=== PATIENT | female | born 1975 | race Caucasian/White ===

== ENCOUNTER → 2017-09-01 | Outpatient (CLI) | payer OTHER ==
[~2017-09-01] MED LIST: ABL/5 PO; ALPR-411 PO; AMT50 PO; BUPR200T2 PO; CHOL1TAB42 PO; FLUD0.1T10 PO; GADAVIST IV PRN; GLUCTAB7 PO; IBUP-103 PO; MULT-506 PO; OXYC20TA50 PO; OXYC7.5T65 PO; TRAZ50TA35 PO; VNTHFA/IN INH
--- NOTE | 2017-09-01 11:49 | DIAGNOSTIC IMAGING REPORT ---
FLUOROSCOPICALLY GUIDED LEFT SHOULDER PRE-MRI ARTHROGRAM CLINICAL HISTORY: LEFT LABRAL TEAR left shoulder pain COMPARISON STUDY: No previous studies for comparison. FINDINGS: A timeout was performed. The risks of the patient were explained the patient informed consent was obtained. The patient was prepped and draped in sterile fashion. 15 seconds of fluoroscopic time was utilized. A single fluoroscopic spot image was obtained. Under fluoroscopic guidance, a 22-gauge spinal needle was introduced the joint capsule. A mixture of Optiray 300 and gadolinium was instilled. A fluoroscopic spot image documents intra-articular location of the contrast. The patient was sent to the MRI suite for further imaging IMPRESSION: Successful fluoroscopically guided left shoulder arthrogram pre-MRI Electronically signed by: Isaiah Perez M.D. 09/01/2017 11:48 AM Dictated Date/Time: 09/01/2017 11:47 AM
--- NOTE | 2017-09-01 14:00 | DIAGNOSTIC IMAGING REPORT ---
L UPPER EXT JOINT WITH CLINICAL HISTORY: 41 years-old Female presenting with LEFT LABRAL TEAR. TECHNIQUE: Multisequence, multiplanar MR imaging of the left shoulder was performed after the administration of intra-articular contrast. IV contrast: None. COMPARISON: MR from 07/30/2016. FINDINGS: Localizer images: Unremarkable. No bone marrow edema. Articular cartilage preserved. Irregularity of the superior labrum at the biceps labral complex and extending posterior from 12:00 to 10:00. No associated articular cartilage disruption. Increased signal intensity of the supraspinatus tendon without focal tear. Partial undersurface tear of the anterior fibers of the infraspinatus. Teres minor tendon intact. Subscapularis tendon and transverse ligament of the subscapularis tendon intact. Long head of the biceps well seated in the intertubercular groove. Short head of the biceps tendon intact. Long head of the triceps tendon intact. Normal muscle bulk and muscle signal intensity. The joint is distended with intra-articular contrast. No evidence of periosteal stripping of the joint capsule at the scapula. IMPRESSION: 1. Interval development of a superior labral anterior to posterior tear from the biceps labral complex to the posterior labrum from 12:00 to 10:00. Alternatively, this may represent postsurgical change. Articular cartilage preserved. 2. Partial undersurface tear of the anterior fibers of the infraspinatus. 3. Tendinosis of the supraspinatus. Electronically signed by: Adolfo Dominguez M.D. 09/01/2017 1:59 PM Dictated Date/Time: 09/01/2017 1:34 PM
== END | disposition home or self-care (01) ==
LOC: C.MRIBC 10:59
PROVIDERS: ATTEND Orthopaedic Surgery
DX: S43.402A Unspecified sprain of left shoulder joint, initial encounter (principal); X58.XXXA Exposure to other specified factors, initial encounter

== ENCOUNTER → 2017-10-01 | Day surgery (SDC) | payer OTHER ==
[2017-09-11 14:55] VITALS: Ht 172.7 cm; Wt 63.6 kg
--- NOTE | 2017-09-15 14:55 | DIAGNOSTIC IMAGING REPORT ---
TWO VIEW CHEST CLINICAL HISTORY: Preoperative examination. FINDINGS: PA and lateral chest radiographs are obtained. No prior studies are available for comparison at the time of dictation. The cardiomediastinal silhouette is unremarkable. The lungs appear hyperinflated, likely due to good inspiratory result. The lungs and pleural spaces are clear. There is no pneumothorax. The bony thorax appears intact. Cholecystectomy clips are identified in the right upper quadrant. IMPRESSION: No active disease in the chest. Electronically signed by: Pedro Pearson M.D. 09/15/2017 2:54 PM Dictated Date/Time: 09/15/2017 2:53 PM
[2017-09-15 15:45] LABS: BASO % 0.4 %; BASO ABS # 0.02 K/uL (0-0.2); EOS % 6.7 %; HEMATOCRIT 35.6 % (37-47); HEMOGLOBIN 11.9 g/dL (12.0-16.0); LYMPH % 45.9 %; LYMPH ABS # 2.06 K/uL (1.2-3.4); MEAN CORPUSCULAR HEMOGLOBIN 30.4 pg (25-34); MEAN CORPUSCULAR HGB CONC 33.4 g/dl (32-36); MEAN PLATELET VOLUME 10.2 fL (7.4-10.4); MONO % 9.8 %; MONO ABS # 0.44 K/uL (0.11-0.59); NEUT % 37.2 %; NEUT ABS # 1.67 K/uL (1.4-6.5); PLATELET COUNT 208 K/uL (130-400); RED CELL DISTRIBUTION WIDTH CV 12.3 % (11.5-14.5); RED CELL DISTRIBUTION WIDTH SD 41.4 fL (36.4-46.3); WHITE BLOOD COUNT 4.49 K/uL (4.8-10.8)
[2017-09-15 16:23] LABS: CALCIUM 8.6 mg/dl (8.5-10.1); CREATININE 0.79 mg/dl (0.60-1.20); POTASSIUM 3.2 mmol/L (3.5-5.1)
[~2017-10-01] VITALS: Ht 172.7 cm; Wt 63.6 kg
[~2017-10-01] MED LIST changes: +ATROPINE SULFATE 0.1 MG/ML 5ML SYR IV PRN; +BUPIVACAINE 0.25% 30 ML VIAL ONE; +CEFAZOLIN 1000MG IV PUSH 7.5 ML IV SCH; +DEXAMETHASONE SOD INJ 4 MG/ML VIAL ONE; +EpHEDrine SULFATE INJ 50 MG/ML AMP IV PRN; +EpINEphrine INJ 1MG/ML AMP 1 MG/ML AMP ONE; +FENTANYL CITRATE INJ 50 MCG/1 ML 2 ML VIAL IV PRN; +FENTANYL CITRATE INJ 50 MCG/1 ML 2 ML VIAL ONE; -GADAVIST IV PRN; +KETOROLAC TROMETHAMINE 30 MG/ML VIAL IV. PRN; +KETOROLAC TROMETHAMINE 30 MG/ML VIAL ONE; +LACTATED RINGER'S 1000ML 1,000 ML IV SCH; +LIDOCAINE HCL 2% 2 ML VIAL (20MG/ML) ONE; +MIDAZOLAM HCL 1 MG/ML 2ML VIAL ONE; +ONDANSETRON INJ 2 MG/ML 2 ML VIAL IV PRN; +ONDANSETRON INJ 2 MG/ML 2 ML VIAL ONE; +OXYCODONE/ACETAMINOPHEN 5-325 TAB ONE; +OXYCODONE/ACETAMINOPHEN 5-325 TAB PO PRN; +PROPOFOL IV EMULSION 10 MG/ML 20 ML VIAL IV ONE; +ROPIVACAINE 0.5% 5 MG/ML 30 ML VIAL ONE; +SODIUM CHLORIDE 0.9% 1000ML 1,000 ML IV SCH
--- NOTE | 2017-10-01 06:57 | History & Physical Bridge Note ---
H&P Re-Evaluation Bridge Note: I have examined the patient, reviewed the History & Physical and in the interval since the performance of the History & Physical I have noted the following changes of clinical significance: No changes noted
--- NOTE | 2017-10-01 08:51 | [facility] Post Operative Brief Note ---
Immediate Operative Summary Operative Date Oct 01, 2017. Pre-Operative Diagnosis Left shoulder biceps tendonitis Post-Operative Diagnosis Same as preop Procedure(s) Performed Left Shoulder Arthroscopy With Biceps Tenodesis Surgeon Dr. Garcia Supervisor Wet Room Surgeon(s) Baljeet Waldrop PA-C Estimated Blood Loss 5 mL Findings Consistent with Post-Op Diagnosis Specimens None Drains None Anesthesia Type General Regional Complication(s) none Disposition Disposition: Recovery Room / PACU
--- NOTE | 2017-10-01 08:59 | Discharge Instructions-SurgCtr ---
Discharge Instructions Date of Service Oct 01, 2017. Visit Reason for Visit: Left Shoulder Superior Glenoid Labrum Jt Injury Discharge Discharge Diagnosis / Problem: SAME ABOVE Discharge Goals Goal(s): Decrease discomfort, Improve function Medications Stopped Medications Name(s): IBUPROFIN LAST DOSE 09-27-17 Restart Stopped Medication(s): NOVEMBER RESTART 10/01/2017 Activity Recommendations Activity Limitations: as noted below Lifting Limitations: until after follow-up appointment Exercise/Sports Limitations: until after follow-up appointment Shower/Bathe: tomorrow Anesthesia . Post Anesthesia Instructions: If you have had General Anesthesia or IV Sedation: * Do not drive today. * Resume driving when surgeon permits. * Do not make important decisions or sign legal documents today. * Call surgeon for: 1. Temperature elevations greater than 101 degrees F. 2. Uncontrollable pain. 3. Excessive bleeding. 4. Persistent nausea and vomiting. 5. Medication intolerance (nausea, vomiting or rash). * For nausea and vomiting use only clear liquids such as: tea, soda, bouillon until nausea subsides, then gradually increase diet as tolerated. * If you have any concerns or questions, call your surgeon's office. If physician is unavailable and it is an emergency, call 911 or go to the nearest emergency room. . Instructions / Follow-Up Instructions / Follow-Up MEDICATIONS: * Resume previous medications unless instructed otherwise by your surgeon. * Always take pain medication on a full stomach or with food to avoid upset stomach. * Do not drink alcohol or drive while taking narcotics. * Ibuprofen or Tylenol may be taken if narcotic not needed. SPECIAL CARE INSTRUCTIONS: __ None _X_ Keep extremity elevated and iced x 48 hours; apply ice 20-30 minutes 8-10 times/day. May remove at night. _X_ Sling (WEAR NEEDED FOR COMFORT) __24 hrs/day __ Remove at night __ Shoulder Immobilizer __ 24 hrs/day __ Remove at night _X_ Dressing __ Maintain until seen in office, may shower with plastic over site _X_ Remove dressings in 24-48 hours and then may shower _X_ Cover incisions with band-aids after showering _X_ Do not remove steri-strips Call physician if chills or temperature rises above 102 degrees or pain unrelieved by prescribed pain medications at . . Diet Recommendations Home Diet: no limitations Fluid Restriction: None Procedures Procedures Performed: Left Shoulder Arthroscopy With Biceps Tenodesis Pending Studies Studies pending at discharge: no Work Instructions Return To Work: after follow-up Lifting Limitations: NO LIFTING MORE THAN 5 POUNDS WITH LEFT ARM Medical Emergencies . Who to Call and When: Medical Emergencies: If at any time you feel your situation is an emergency, please call 911 immediately. . Non-Emergent Contact Non-Emergency issues call your: Primary Care Provider Call Non-Emergent contact if: you have a fever, temperature is above 101.5 . . "Provider Documentation" section prepared by Baljeet Waldrop. .
[2017-10-01 09:38] VITALS: TEMP 36.8
--- NOTE | 2017-10-01 09:48 | OPERATIVE REPORT ---
DATE OF OPERATION: 10/01/2017 PREOPERATIVE DIAGNOSES: Biceps tendinopathy and postoperative scarring of the left shoulder. POSTOPERATIVE DIAGNOSES: Biceps tendinopathy, postoperative scarring and external impingement of the left shoulder. PROCEDURE: Left shoulder diagnostic arthroscopy with extensive debridement, acromioplasty and open biceps tenodesis. SURGEON: Celio Garcia DO. COOLER WORKER: Baljeet Waldrop PA-C, whose assistance was necessary for helping in positioning, retraction, and closure. ANESTHESIA: General with a left interscalene nerve block. COMPLICATIONS: None. CONDITION: Stable to PACU. INDICATIONS: Kasey is a 41-year-old female who has been dealing with chronic left shoulder pain. She had a decompression done in 2016 at an outside institution and a SLAP repair done in 2017 at an outside institution. She continued to have pain. She came to me for a second opinion. MRI showed no rotator cuff tears, but she elected to undergo biceps tenodesis and extensive debridement. On 10/01/2017, she arrived at [facility] for the above procedure. She was seen in preoperative holding area and the operative extremity was identified and signed. She was given a preoperative antibiotic and a left interscalene nerve block. DESCRIPTION OF THE PROCEDURE: She was taken back to the operating room, laid on the table in supine position and put under general anesthesia. She was put into the beachchair position. The left shoulder was prepped and draped in sterile fashion. Time-out was done. The patient and operative extremity was properly identified. A scope was introduced in the posterior portal. Diagnostic arthroscopy showed no cartilage damage to the humeral head or the glenoid. The supraspinatus, infraspinatus, teres minor and subscapularis were all checked and intact. The biceps tendon was slightly frayed. There was a single anchor superior labral repair just posterior to the biceps anchor. The labrum looked okay. There was a little fraying of the anterior labrum, but nothing extensive. There was a lot of redness around the base and anchor of the biceps tendon. An anterior portal was made. A shaver was used to do a debridement of the intraarticular structures and the biceps tendon was arthroscopically tenotomized. The scope was then put into the subacromial space. A lateral portal was made. A shaver was used to do a complete subacromial and subdeltoid bursectomy. Significant time was spent removing all adhesions from the previous surgery. There were a lot of adhesions going from the rotator cuff up to the acromion. Adhesions were removed around the entire distal clavicle and adhesions seemed to be impinging upon the anterior cuff. I did see a continued anterior subacromial spur. A 5-0 shashi was used to complete an acromioplasty, which gave a lot more room in the subacromial space. A shaver was used to continue debridement. The bursal side of the rotator cuff was examined extensively without evidence of tear. Arthroscopic instruments removed from the shoulder. Attention was turned to an open biceps tenodesis. A small incision was made over the inferior border of the pectoralis major. Dissection was taken down through the fascia. The long head of biceps tendon was delivered out of the wound. The tendon was then whip stitched at the anticipated level of tenodesis and the reminder of the tendon was discarded. A 5 mm hole was drilled in bicipital groove and the biceps tendon was tenodesed with an Arthrex biceps button in a tension slide technique to deliver the tendon into the 5 mm hole. This gave good fixation. The wound was then irrigated, closed with 3-0 Vicryl and running 3-0 Monocryl. Steri-strips were placed. Portal sites were closed with 3-0 nylon. She was then placed in a soft dressing and regular arm sling. She was then extubated, transferred to a [facility] and taken to the postanesthesia care unit in stable condition. She tolerated the procedure well. I attest to the content of the Intraoperative Record and any orders documented therein. Any exception s are noted below.
--- NOTE | 2017-10-01 10:01 | Anesthesia Progress Nt - [facility] ---
Anesthesia Post Op Note Date & Time Oct 01, 2017 at 10:01 Vital Signs Pain Intensity: 3 Vital Signs Past 12 Hours Date Time Temp Pulse Resp B/P (MAP) Pulse Ox O2 Delivery O2 Flow Rate FiO2 10/01/17 09:38 36.8 81 18 114/73 (87) 100 Room Air 10/01/17 09:33 36.8 10/01/17 09:32 81 19 10/01/17 09:32 81 19 99 10/01/17 09:30 111/71 (83) 10/01/17 09:27 82 17 10/01/17 09:27 83 17 100 10/01/17 09:25 115/72 (82) 10/01/17 09:22 80 18 10/01/17 09:22 80 18 100 10/01/17 09:20 116/72 (83) 10/01/17 09:17 85 12 10/01/17 09:17 84 12 100 10/01/17 09:15 121/74 (81) 10/01/17 09:12 87 18 10/01/17 09:12 87 18 100 10/01/17 09:10 115/70 (82) 10/01/17 09:07 92 22 100 10/01/17 09:07 91 22 10/01/17 09:05 120/65 (81) 10/01/17 09:02 94 17 10/01/17 09:02 95 17 100 10/01/17 09:00 119/68 (80) 10/01/17 08:58 118/66 (83) 10/01/17 08:57 101 99 10/01/17 08:57 101 10/01/17 08:56 36.8 95 16 118/68 100 Diffusion Mask 5 10/01/17 07:43 0 10/01/17 07:41 Oxymask 4 10/01/17 07:40 108/68 10/01/17 07:38 87 10/01/17 07:38 87 21 100 10/01/17 07:35 102/64 10/01/17 07:33 92 20 99 10/01/17 07:33 91 10/01/17 07:32 107/63 10/01/17 06:29 37.2 99 14 112/69 (83) 97 Room Air Notes Mental Status: alert / awake / arousable, participated in evaluation Pt Amnestic to Procedure: Yes Nausea / Vomiting: adequately controlled Pain: adequately controlled Airway Patency, RR, SpO2: stable & adequate BP & HR: stable & adequate Hydration State: stable & adequate Anesthetic Complications: no major complications apparent
[2017-10-01 10:19] VITALS: BP 117/75; PULSE 84; O2SAT 100
== END | disposition home or self-care (01) ==
LOC: X.SURG 06:11
PROVIDERS: ATTEND Orthopaedic Surgery
DX: M75.22 Bicipital tendinitis, left shoulder (principal); M75.42 Impingement syndrome of left shoulder; J45.909 Unspecified asthma, uncomplicated; F32.9 Major depressive disorder, single episode, unspecified; Z82.49 Family history of ischemic heart disease and other diseases of the circulatory system; Z80.3 Family history of malignant neoplasm of breast; F41.9 Anxiety disorder, unspecified